=== PATIENT | female | born 1960 | race Caucasian/White ===

== ENCOUNTER 2018-05-07 14:40 | Emergency (ER) | payer OTHER ==
[~2018-05-07] VITALS: Ht 162.6 cm; Wt 76.3 kg
[~2018-05-07 14:40] MED LIST: ASA5UEC; CIPRO500 MG PO; FISHOIL; FLEXERIL PO; HYDROCODONE-AP1 EAC6 PO; IBUPROFEN 800800 M1 PO; LOPRESSOR100 MG; NOHOMEMEDICATIONS; NORCO 5-325 TA1 EACH PO; SIMVASTATIN80 MG
[2018-05-07] MEDS ORDERED: TYLENOL EXTRA500 MG PO (15:02)
[2018-05-07] MEDS ORDERED: NORCO 5-325 TA1 EACH PO (16:15)
[2018-05-07 16:48] VITALS: BP 152/96
== END 2018-05-07 16:49 | disposition home or self-care (01) ==
LOC: M.ERS 14:40
DX: S09.8XXA Other specified injuries of head, initial encounter (principal); M25.552 Pain in left hip; E78.00 Pure hypercholesterolemia, unspecified; M54.30 Sciatica, unspecified side; Z95.5 Presence of coronary angioplasty implant and graft; I25.2 Old myocardial infarction; Z90.710 Acquired absence of both cervix and uterus; F17.200 Nicotine dependence, unspecified, uncomplicated; W07.XXXA Fall from chair, initial encounter; Y93.89 Activity, other specified; Y92.89 Other specified places as the place of occurrence of the external cause; Y99.8 Other external cause status

== ENCOUNTER 2018-06-02 10:00 | Emergency (ER) | payer OTHER ==
[~2018-06-02] VITALS: Ht 165.1 cm; Wt 90.7 kg
[~2018-06-02 10:00] MED LIST changes: +TYLENOL EXTRA500 MG PO
== END 2018-06-02 10:17 ==
LOC: M.ERS 10:00 → EDBD 10:00 → M.ERS 10:00
DX: I46.9 Cardiac arrest, cause unspecified (principal); I10 Essential (primary) hypertension; Z95.5 Presence of coronary angioplasty implant and graft